=== PATIENT | female | born 1970 | race Caucasian/White ===

== ENCOUNTER 2018-10-02 09:54 | Emergency (ER) | payer BC ==
[~2018-10-02] VITALS: Ht 157.5 cm; Wt 62.8 kg
[2018-10-02 10:00] VITALS: Ht 157.5 cm; Wt 62.8 kg
[2018-10-02 14:17] VITALS: BP 103/60
== END 2018-10-02 15:01 | disposition home or self-care (01) ==
LOC: ED 09:54
DX: S29.012A Strain of muscle and tendon of back wall of thorax, initial encounter (principal); S83.91XA Sprain of unspecified site of right knee, initial encounter; Z98.890 Other specified postprocedural states; W01.0XXA Fall on same level from slipping, tripping and stumbling without subsequent striking against object, initial encounter; Y93.89 Activity, other specified; Y92.89 Other specified places as the place of occurrence of the external cause; Y99.8 Other external cause status
CPT/HCPCS: 72072